=== PATIENT | female | born 1995 | race Caucasian/White ===

== ENCOUNTER 2016-06-29 09:50 | Emergency (ER) | payer OTHER ==
[~2016-06-29] VITALS: Ht 170.2 cm; Wt 60.0 kg
[~2016-06-29 09:50] MED LIST: DEPO150I IM; VALT1TAB26 PO
[2016-06-29 09:53] VITALS: BP 119/59; PULSE 87; RESP 15; TEMP 98.2; O2SAT 98
[2016-06-29] MEDS ORDERED: LOPE2TAB3 PO (10:28)
[2016-06-29] MEDS ORDERED: ZOFR4TAB3 SL (10:28)
--- NOTE | 2016-06-29 10:28 | PD ---
HPI Chief Complaint: GI Complaint Time Seen by Provider: 10:20 Travel History International Travel<30 days: No Contact w/Intl Traveler<30days: No Traveled to known affect area: No History of Present Illness HPI This is a 21-year-old female who presents to the emergency department with vomiting and loose stools that started yesterday, constant throughout the night. She reports that she kept having to run to the bathroom throughout the night and kept her up. She's been drinking water but is having trouble keeping up. Her boyfriend was sick with similar symptoms one week ago. She doesn't think she could be because she is on Depakote and is only 60 days into her shot. She denies any fevers or chills. She has some diffuse abdominal cramping associated with her symptoms. 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 HEAD: Atraumatic. Normocephalic. EYES: Pupils equal and round. No injection or drainage. ENT: Moist mucous membranes NECK: Trachea midline. CARDIOVASCULAR: Regular rate and rhythm. No murmur appreciated. RESPIRATORY: Clear to auscultation. Breath sounds equal bilaterally. GASTROINTESTINAL: Abdomen soft, non-tender, nondistended. MUSCULOSKELETAL: No obvious deformities. NEUROLOGICAL: Awake and alert. No obvious cranial nerve deficits. Moving all extremities. PSYCHIATRIC: Appropriate mood and affect; insight and judgment normal. Data Data Last Documented VS Vital Signs Date Time Temp Pulse Resp B/P Pulse Ox O2 Delivery O2 Flow Rate FiO2 06/29/16 09:53 98.2 87 15 119/59 98 MDM Medical Decision Making Medical Screen Exam Complete: Yes Emergency Medical Condition: Yes Interpretation(s) Afebrile with no tachycardia Differential Diagnosis Gastroenteritis, bowel obstruction, dehydration Narrative Course This is a 21-year-old female who presents to the emergency department with vomiting and diarrhea that's been going on for 2 days. Her boyfriend was sick with similar symptoms one week ago. She is very well-appearing on exam with a benign nontender abdomen and moist mucous membranes. Her vital signs are reassuring. I don't think she has any signs of dehydration at this time. I think she is appropriate for outpatient oral symptomatic control and continued hydration in the setting of a likely viral gastroenteritis. Diagnosis Primary Impression: Gastroenteritis Patient Instructions: General Instructions Departure Forms: Tests/Procedures, Work Release Enter return to work date: Jun 30, 2016 Additional Instructions: If you develop lightheadedness, dizziness, persistent vomiting, inability to eat , or severe abdominal pain return to the emergency department. Followup with your primary care physician in 2-3 days if your symptoms have not resolved. Wash your hands agressively after using the restroom as to not spread your illness to others. Do not return to work until your symptoms have resolved. Take Zofran as needed for nausea. Med/Other Pt SpecificInfo: Prescription(s) given Scripts Loperamide 2 Mg Tab2 Mg PO DIRECTED PRN (DIARRHEA) #15 TAB Ref 0 One tablet after each loose stool. Not to exceed 8 tablets per day. Prov:Selena Hutchinson MD 06/29/16 Ondansetron Odt (Zofran Odt)4 Mg Tab4 Mg SL Q6HR PRN (Nausea/Vomiting) #10 TAB Ref 0 Prov:Selena Hutchinson MD 06/29/16 Disposition: DISCHARGE HOME Condition: Stable Selena Hutchinson MD Jun 29, 2016 10:28
[2016-06-29] MEDS ORDERED: ONDANSETRON ODT 4 MG TAB PO ONE (10:30)
[2016-06-29] MEDS ORDERED: DEPO150I IM (10:34)
== END 2016-06-29 10:43 | disposition home or self-care (01) ==
LOC: NEPB 09:50
DX: K52.9 Noninfective gastroenteritis and colitis, unspecified (principal)
CPT/HCPCS: 99283